=== PATIENT | male | born 1970 | race Caucasian/White ===

== ENCOUNTER 2018-04-02 10:56 | Outpatient (CLI) | payer SELFPAY ==
--- NOTE | 2018-04-02 11:06 | DI.RAD_ITS ---
SYMPTOMS/DIAGNOSIS: BACK PAIN WITH RADICULOPATHY, M54.16 LUMBAR SPINE: AP, lateral and bilateral oblique views. Comparison is 01/10/17. There are five lumbar-type vertebral bodies. No spondylolysis or spondylolisthesis is identified. There is disc space narrowing at L5-S1 and a vacuum disc. This is stable. Endplate osteophytes are seen throughout the lumbar spine and appear stable. Degenerative changes of the facets are seen at L4-5 and L5-S1, which appear stable. No acute fractures or subluxations are seen. IMPRESSION: Stable degenerative changes in the lumbar spine.
== END 2018-04-02 11:16 ==
PROVIDERS: PCP Family Medicine; Visit Provider Family Medicine
DX: M25.78 Osteophyte, vertebrae (principal); M51.17 Intervertebral disc disorders with radiculopathy, lumbosacral region; M47.26 Other spondylosis with radiculopathy, lumbar region; M47.27 Other spondylosis with radiculopathy, lumbosacral region
CPT/HCPCS: 72110

== ENCOUNTER 2020-01-23 15:23 | Outpatient (REF) | payer SELFPAY ==
[2020-01-23 20:00] LABS: Calculated LDL 130 mg/dL (<100); Cholesterol 200 mg/dL (<200); HDL Cholesterol 55 mg/dL (40-60); Triglyceride 76 mg/dL (<150)
[2020-01-23 20:06] LABS: Hemoglobin A1C 5.5 % (<5.7)
== END 2020-01-23 15:43 ==
LOC: NCHCN 15:23
PROVIDERS: PCP Family Medicine; Visit Provider Family Medicine
DX: Z13.220 Encounter for screening for lipoid disorders (principal); Z13.1 Encounter for screening for diabetes mellitus; Z00.00 Encounter for general adult medical examination without abnormal findings
CPT/HCPCS: 80061; 83036

== ENCOUNTER 2020-01-27 14:07 | Outpatient (REF) | payer SELFPAY ==
[2020-01-27 19:25] LABS: HCT 46.3 % (40.0-50.0); HGB 15.8 g/dL (13.5-17.5); MCH 28.9 pg (27.0-33.0); MCHC 34.1 % (32.0-36.0); MCV 84.6 fL (80-95); MPV 10.4 fL (8.0-11.0); Platelet Count 322 10^3/uL (130-400); RBC 5.47 10^6/uL (4.36-5.78); RDW 13.2 % (11.8-14.1); RDW-SD 41.4 fL; WBC 8.35 10^3/uL (4.4-10.8)
[2020-01-27 19:44] LABS: ALT 61 U/L (16-63); AST 27 U/L (15-37); Albumin 4.1 g/dL (3.4-5.0); Alkaline Phosphatase 80 U/L (46-116); Anion Gap 8.9 mmol/L (3-11); BUN 21 mg/dL (7-18); CO2 27.1 mmol/L (21.0-32.0); CREATININE 0.96 mg/dL (0.70-1.30); Calcium 9.5 mg/dL (8.5-10.1); Chloride 102 mmol/L (98-107); Glucose 90 mg/dL (74-106); Potassium 4.4 mmol/L (3.5-5.1); Sodium 138 mmol/L (136-145); TSH (W/Ref FT4) 1.59 uIU/mL (0.36-3.74); Total Protein 7.3 g/dL (6.4-8.2)
== END 2020-01-27 14:27 ==
LOC: NCHCN 14:07
PROVIDERS: PCP Family Medicine; Visit Provider Family Medicine
DX: R53.83 Other fatigue (principal); B35.1 Tinea unguium; Z00.00 Encounter for general adult medical examination without abnormal findings
CPT/HCPCS: 80053; 85027; 84443

== ENCOUNTER 2020-03-22 17:17 | Outpatient (REF) | payer BC, SELFPAY ==
[2020-03-22 20:20] LABS: ALT 50 U/L (16-63); AST 28 U/L (15-37)
== END 2020-03-22 17:37 ==
LOC: NCHCN 17:17
PROVIDERS: PCP Family Medicine; Visit Provider Family Medicine
DX: R53.83 Other fatigue (principal)
CPT/HCPCS: 84450; 84460

== ENCOUNTER 2021-10-21 16:41 | Outpatient (REF) | payer BC, SELFPAY ==
[2021-10-21 15:33] LABS: Calculated LDL 122 mg/dL (<100); Cholesterol 203 mg/dL (<200); Glucose 80 mg/dL (74-106); HDL Cholesterol 74 mg/dL (40-60); Triglyceride 39 mg/dL (<150)
[2021-10-21 22:50] LABS: PSA, Screening 0.2 ng/mL (<=3.5)
[2021-10-27 16:30] LABS: Testosterone, Free 12.5 ng/dL (4.06-15.6); Testosterone, Total 481 ng/dL (240-950)
== END 2021-10-21 16:42 | disposition home or self-care (01) ==
LOC: NCHCN 16:41
PROVIDERS: PCP Family Medicine; Visit Provider Family Medicine
DX: Z00.00 Encounter for general adult medical examination without abnormal findings (principal); Z13.1 Encounter for screening for diabetes mellitus; Z12.5 Encounter for screening for malignant neoplasm of prostate; Z13.220 Encounter for screening for lipoid disorders
CPT/HCPCS: 80061; 82947; 84153; 84402; 84403

== ENCOUNTER 2023-05-11 06:17 | Day surgery (SDC) | payer BC, SELFPAY ==
--- NOTE | 2023-05-10 19:50 | W.PM.DSUDISC ---
Date of service: 05/11/23 Time of Service: 09:13 Discharge Plan Disposition Patient Disposition: Home Condition: Good Discharge Details Reason For Visit: Inguinal hernia repair Attending Provider: Rohan Porter Primary Care Provider: Andree Espinosa V Home Meds and New Rx's Prescriptions: Continued tramadol 100 mg tablet 100 mg PO TID PRN (Reason: pain) Qty: 12 0RF Rx Instructions: Take 1 tablet by mouth up to every 8 hours if needed for severe pain. These tablets can be broken in half. Do not drive while using this medication. Discharge Instructions Instructions: Inguinal Hernia Repair (GEN) Additional Instructions: Body, you did great today. The hernia repair went very smoothly. I think you made a smart decision by having surgery. I suspect that this would have increased in size in the years to come. The mesh is well-seated, and hopefully will provide a durable repair over the course your life. Like we talked about before, expect to have a little more pain in the days to come. You should be up and moving around, but taking some care to avoid really strenuous activities, lifting, or vigorous twisting across your lower abdomen and waist. Please leave the bandage on until tomorrow. At that point, you can remove it in the shower, and wash everything with warm soapy water. You are welcome to put Band-Aids on it over the next few days, but assuming it is dry and feels okay, you do not need to do that in particular. I would also expect to see some bruising in the area, that may extend down into your scrotum. Do not be alarmed if that happens it is quite common. Please do let me know if there are any changes in the skin that look like infection. This would include things like the skin turning bright red, or draining thick fluid from the incision. Please do not be afraid to let me know if you have any issues at all. Assuming things go smoothly, I will plan to see you in the office in June 06. Hopefully you guys can have a great [place], and take it easy as this heals. 1. Resume all of your medications. 2. Use heating pads and ice packs as needed for pain. 3. Okay to use tylenol and ibuprofen over the counter as needed. Use tramadol if needed for more severe pain. 4. Leave bandage in place for 24 hours, then remove. 5. Shower with warm soapy water. Pat dry. Use a bandaid if needed to protect your clothing. 6. No soaking or tub baths until I see you in the office. 7. No heavy lifting until I see you in the office. 8. Call the office (or go directly to the emergency room after hours) if you notice any of the following: Develop chills (warm to touch), or if you have a thermometer and your temperature is above 101 Difficulty breathing or difficultly swallowing Persistent vomiting Any bleeding ? exceeding one tablespoon 9. Call your physician if the site where your intravenous was started becomes red, swollen, painful, and warm to touch. Activity:: Activity as Tolerated Diet:: As Tolerated Discharge Orders Discharge Orders: Discharge Order (Routine); Ordered 05/10/23 Ordered By: Rohan Porter DS: Diagnosis Discharge Diagnosis (1) Inguinal hernia: Status: Acute Asessment and Plan: Outpatient follow-up on June 06
--- NOTE | 2023-05-10 19:55 | W.PM.OP ---
Date of service: 05/11/23 Time of Service: 09:17 Operative Note Operative Note DATE OF PROCEDURE: 05/11/23 PRE-OP DIAGNOSIS: Right inguinal hernia PROCEDURE: Open right inguinal hernia repair with mesh SURGEON: Rohan Porter [employer] PRODUCER: Jeannie Lechuga ANESTHESIA TYPE: Local By Surgeon and General LMA/ETT Refer to Anesthesia Record ESTIMATED BLOOD LOSS: 10 PATHOLOGY: none sent COMPLICATIONS: None Patient was transported to: PACU Patient's condition: stable Implants: Large Bard PerFix light plug and patch Indications: But is a 53-year-old male with a painful right-sided inguinal hernia. Findings: Indirect right inguinal hernia Procedure Description: I began by confirming the correct site with the patient. Next, after induction of general anesthesia the patient underwent ultrasound-guided tap block by the anesthesia team. The surgical site was then prepped and draped in the usual fashion. I began by making an oblique incision over the right inguinal region. I dissected down through the skin to the deep fascia. Next, I incised the fascia along the length of the inguinal canal to the external ring. I then carefully identified the ilioinguinal nerve and sharply divided. Once this was complete, I bluntly dissected the shelving edge of the inguinal ligament down towards the pubic tubercle. Here, I encircled all cord structures with a Lily drain. Next, I began dissecting the specific cord structures. Great care was taken to spare the vas deferens and the blood supply to the testicle. Next, I isolated the hernia sac from the other inguinal structures. I reduced it back to its normal anatomic position. I then used a large mesh plug to obliterate the defect at the internal ring. I fixed in place with interrupted Prolene stitches. Next, I buttressed the posterior floor of the inguinal canal with a large mesh patch. I started by fixing it to the pubic tubercle. Next, I used Prolene sutures to affix it to the shelving edge of the inguinal ligament and the conjoined tendon. Laterally I tacked it to the external oblique fascia and reconstructed an internal ring without any strain on the cord structures. Once this was complete, I irrigated the surgical field. It appeared hemostatic. I then closed the anterior portion of the fascia to reconstruct the front wall of the inguinal canal. I did this with running Vicryl stitches. Once again, I irrigated the surgical field and inspected for hemostasis. Finally, I approximated the superficial fascia and the deep layers of the skin with absorbable suture. Skin was closed with running subcuticular stitches. Bandages were applied, the patient was awakened and transferred to the recovery unit.
[2023-05-11] VITALS (10 sets, daily range): BP systolic 99–128; BP diastolic 55–81; PULSE 49–69; RESP 11–19; TEMP 36.5–36.6; O2SAT 96–100; BMI 27.6
[2023-05-11] MEDS: Acetaminophen 500 MG TAB 1000 MG PO (06:43)
[2023-05-11] MEDS: Gabapentin 300 MG CAP 600 MG PO (06:43)
[2023-05-11] MEDS: Celecoxib 200 MG CAP PO (06:43)
[2023-05-11] MEDS: Lactated Ringers 1,000 ML 80 ML IV (06:44)
--- NOTE | 2023-05-11 07:00 | W.ANESPRE ---
General Info Date of Service Date Performed: 05/11/23 Height: 5 ft 7 in Weight: 79.9 kg Body Mass Index (BMI): 27.6 Surgical Procedure: Operation Date: 05/11/23 07:40 Proposed Procedure Side Surgeon p Herniorrhaphy Inguinal Right Rohan Porter MD Meds Allergies and Home Medications Allergies Allergy/AdvReac Type Severity Reaction Status Date / Time No Known Allergies Allergy Unverified 05/11/23 06:20 Home Medication Medication Instructions Recorded tramadol 100 mg tablet 100 mg PO TID PRN pain #12 tabs 05/10/23 Current Visit Medications: Current Medications Generic Name Dose Route Start Last Admin Trade Name Freq PRN Reason Stop Dose Admin Acetaminophen 1,000 mg 05/11/23 06:00 05/11/23 06:43 Acetaminophen 500 Mg Tab PO 05/11/23 23:59 1,000 mg PREOP BERT Administration Celecoxib 200 mg 05/11/23 06:00 05/11/23 06:43 Celecoxib 200 Mg Cap PO 05/11/23 23:59 200 mg PREOP BERT Administration Gabapentin 600 mg 05/11/23 06:00 05/11/23 06:43 Gabapentin 300 Mg Cap PO 05/11/23 23:59 600 mg PREOP BERT Administration Ringer's Solution 1,000 mls @ 80 mls/hr 05/11/23 06:00 05/11/23 06:44 IV 05/11/23 23:59 80 mls/hr INFUSION BERT Administration Cefazolin Sodium 3,000 mg/ 100 mls @ 200 mls/hr 05/11/23 06:00 Sodium Chloride IVPB 05/11/23 23:59 NOW BERT IV Miscellaneous Supplies 1 each 05/11/23 06:00 Iv Access IV 05/11/23 23:59 DIRECTED BERT Morphine Sulfate 4 mg 05/10/23 20:00 Morphine 4 Mg/Ml Syr IVP 06/09/23 19:59 Q1H PRN PRN Sodium Chloride 0 ml 05/11/23 06:00 Normal Saline Flush 10 Ml Syr IV 05/11/23 23:59 PRN PRN Sodium Chloride 0 ml 05/11/23 06:00 Normal Saline 10 Ml Vial IJ 05/11/23 23:59 DIRECTED PRN Sterile Water 0 ml 05/11/23 06:00 Water,Injection,Sterile 10 Ml Vial IJ 05/11/23 23:59 DIRECTED PRN Tramadol HCl 100 mg 05/10/23 20:00 Tramadol 50 Mg Tab PO 06/09/23 19:59 Q6H PRN PRN Pain PFSH Active Problems Active Problems: Problem Status Onset Code Inguinal hernia K40.90 Abdominal or pelvic swelling, mass, or lump, right lower quadrant R19.03 Abdominal bloating R14.0 Medial epicondylitis M77.00 Pes anserinus bursitis of right knee M70.51 Medical History Medical History Foreign body under eyelid Acute low back pain Back pain with radiculopathy Trochanteric bursitis, right hip Old disruption of medial collateral ligament Xeroderma Shingles Onychomycosis Fatigue Knee pain Tobacco Smoking/Tobacco Use Status: Never Alcohol Alcohol Intake: current Alcohol intake frequency: a few times a month Substance Use Substance use: Never Substance use type: does not use Vital Signs and Lab Results Vital Signs Most Recent Vital Signs in EMR: Most Recent Vital Signs Temp Pulse Resp BP Pulse Ox 36.6 C 69 16 110/69 96 05/11/23 06:52 05/11/23 06:52 05/11/23 06:52 05/11/23 06:52 05/11/23 06:52 Lab Results Blood Type / Crossmatch: No Data to Display Complete Blood Count: No Data to Display Complete Metabolic Panel: No Data to Display Liver Function Panel: No Data to Display Coagulation Panel: No Data to Display Cardiac Panel: No Data to Display Arterial Blood Gas: No Data to Display Venous Blood Gas: No Data to Display Pancreas Panel: No Data to Display Thyroid Panel: No Data to Display Infectious Disease: No Data to Display Blood Cultures: No Data to Display Toxicology Panel: No Data to Display Anesthesia Assessment and Plan Anesthesia History Personal History: No History of Anesthesia Complications Family History: No Family History of Anesthesia Complications Exercise Tolerance Exercise Tolerance: Metabolic Equivalents>4 Pertinent Negatives Pertinent Negatives: No Symptoms of GERD, No Major Cardiovascular Symptoms or Complaints and No Major Pulmonary Symptoms or Complaints Cardiac & Pulmonary Exam Cardiac Exam: Normal S1/S2 Heart Sounds Pulmonary Exam: Clear Bilateral Breath Sounds Implantable Cardiac Device Does patient have a Pacemaker or an ICD?: No Airway Exam Known Difficult Airway: No Mallampati Class: 1 Mouth Opening: Normal (> 3cm) Thyromental Distance: Greater than 3 cm Neck Range of Motion: Full ROM Neck Circumference: Normal Teeth Condition: Normal Dentition ASA Classification ASA Score: ASA 2 Emergency Case?: No NPO Status NPO Status: NPO Clears >2 hours, Solids >8 hours Anesthesia Plan Resuscitation Status: Full Code Anesthesia Technique: General Anesthesia Airway Planned: LMA Pain Management: Surgeon and patient request nerve block Monitors Used: Standard Monitors
[2023-05-11] MEDS: ceFAZolin 3,000 MG in Normal Saline 100 ML 200 MG IVPB (07:57)
--- NOTE | 2023-05-11 08:14 | ANES.NERVE_ITS ---
Nerve Block Single Injection Procedure Date and Time Date Performed: 05/11/23 Procedure Start: 07:50 Location Where Procedure Performed Procedure Location: Operating Room Procedure Stop: 07:56 Reason Performed: Postoperative Analgesia Requesting Provider: Rohan Porter Timeout Performed Timeout Performed: Yes Monitoring Used ECG, Blood Pressure, SpO2 and See EMR for corresponding vital signs Sterility Sterility: Hand Hygiene, Surgical Cap, Surgical Mask, Sterile Gloves and Chlorh exidine Sedation Given During Procedure Sedation Given (Indicate Dose Given): No Sedation given Patient Mental Status Patient Mental Status: Performed under general anesthesia Nerve Block 1st Nerve Block: Laterality: Right Block Type: TAP Unilateral Ultrasound Image Saved?: Yes Needle / Catheter Used: 100mm SonoPlex II Local Anesthetic Bolus (Indicate Dose Given): None, Injected in 3-5ml increments after negative blood aspiration, Bupivacaine 0.25% Dose:: 20mL and Exparel Dose:: 10mL Additives (Indicate Dose Given): None Ultrasound: Sterile probe cover and gel used Nerve Stimulator: Not Used Paresthesia: None Procedure Tolerated: No Complications Procedure Outcome: Successful Performed By: Sheir Love
[2023-05-11] MEDS: fentaNYL 100 MCG/2 ML VIAL IVP ×2 (09:28→09:37)
[2023-05-11] MEDS: Normal Saline 10 ML VIAL IJ (10:06)
[2023-05-11] MEDS: HYDROmorphone 2 MG/ML SYR IVP (10:07)
[2023-05-11] MEDS: traMADol 50 MG TAB 100 MG PO (10:44)
--- NOTE | 2023-05-11 10:54 | W.ANESPOSTOP ---
Postoperative Evaluation Date, Time and Location Date Performed: 05/11/23 Time Performed: 10:53 Patient Location: Day Surgery Unit Vital Signs Most Recent Imported Vital Signs: Most Recent Vital Signs Temp Pulse Resp BP Pulse Ox 36.6 C 58 L 16 121/81 99 05/11/23 10:32 05/11/23 10:32 05/11/23 10:32 05/11/23 10:32 05/11/23 10:32 Pain Score Most Recent Pain Score: Most Recent Pain Score Pain Level 4 05/11/23 10:32 Assessment Mental Status: Awake (Alert & Oriented to Patient Baseline) Airway and Respiratory Function: Patent airway with normal (patient baseline) respiratory exam Cardiovascular Function: Hemodynamically Stable Hydration Status: Adequately Hydrated Nausea & Vomiting: No Nausea or Vomiting Pain: Pain is tolerable per patient Peripheral Nerve Block: Regional nerve block not resolved at time of post operative discharge
== END 2023-05-11 17:34 | disposition home or self-care (01) ==
LOC: SUR 06:18
PROVIDERS: PCP Family Medicine; Visit Provider Surgery
PROC: (CPT 49505; principal; 2023-05-11 07:30)
DX: K40.90 Unilateral inguinal hernia, without obstruction or gangrene, not specified as recurrent (principal); R14.0 Abdominal distension (gaseous)
CPT/HCPCS: 49505; 76942; C1781; J0690; J1100; J1170; J2001; J2250; J2405; J2704; J3010

== ENCOUNTER 2023-06-06 10:44 | Day surgery (SDC) | payer BC, SELFPAY ==
[2023-06-06 10:55] VITALS: BP 115/87; PULSE 72; RESP 16; TEMP 36.4; O2SAT 98
[2023-06-06] MEDS: Lactated Ringers 1,000 ML 80 ML IV (11:11)
--- NOTE | 2023-06-06 11:23 | W.ANESPRE ---
General Info Date of Service Date Performed: 06/06/23 Height: 5 ft 7 in Weight: 81 kg Body Mass Index (BMI): 27.9 Surgical Procedure: Operation Date: 06/06/23 13:05 Proposed Procedure Side Surgeon p Colonoscopy Guillermo Pierre MD Meds Allergies and Home Medications Allergies Allergy/AdvReac Type Severity Reaction Status Date / Time No Known Allergies Allergy Verified 06/06/23 10:51 Home Medication Medication Instructions Recorded bisacodyl 5 mg tablet,delayed 5 mg PO ONCE colonscopy bowel prep 05/23/23 release (Dulcolax (bisacodyl)) #4 tabs polyethylene glycol 3350 17 238 g PO ONCE colonoscopy prep 05/23/23 gram/dose oral powder #238 grams Current Visit Medications: Current Medications Generic Name Dose Route Start Last Admin Trade Name Freq PRN Reason Stop Dose Admin Ringer's Solution 1,000 mls @ 80 mls/hr 06/06/23 06:00 06/06/23 11:11 IV 07/05/23 23:59 80 mls/hr INFUSION BERT Administration IV Miscellaneous Supplies 1 each 06/06/23 06:00 Iv Access IV 07/05/23 23:59 DIRECTED BERT Sodium Chloride 0 ml 06/06/23 06:00 Normal Saline Flush 10 Ml Syr IV 07/05/23 23:59 PRN PRN Sodium Chloride 0 ml 06/06/23 06:00 Normal Saline 10 Ml Vial IJ 07/05/23 23:59 DIRECTED PRN Sterile Water 0 ml 06/06/23 06:00 Water,Injection,Sterile 10 Ml Vial IJ 07/05/23 23:59 DIRECTED PRN PFSH Active Problems Active Problems: Problem Status Onset Code Inguinal hernia K40.90 Abdominal or pelvic swelling, mass, or lump, right lower quadrant R19.03 Abdominal bloating R14.0 Medial epicondylitis M77.00 Pes anserinus bursitis of right knee M70.51 Medical History Medical History (Updated 06/05/23 @ 12:16 by Syed Rodriguez) Foreign body under eyelid Acute low back pain Back pain with radiculopathy Trochanteric bursitis, right hip Old disruption of medial collateral ligament Xeroderma Shingles 2014 Onychomycosis Fatigue Knee pain Surgical History Surgical History Inguinal hernia of right side without obstruction or gangrene (~04/2023) Tobacco Smoking/Tobacco Use Status: Never Alcohol Alcohol Intake: current Alcohol intake frequency: a few times a month Substance Use Substance use: Never Substance use type: does not use Vital Signs and Lab Results Vital Signs Most Recent Vital Signs in EMR: Most Recent Vital Signs Temp Pulse Resp BP Pulse Ox 36.4 C L 72 16 115/87 98 06/06/23 10:55 06/06/23 10:55 06/06/23 10:55 06/06/23 10:55 06/06/23 10:55 Lab Results Blood Type / Crossmatch: No Data to Display Complete Blood Count: No Data to Display Complete Metabolic Panel: No Data to Display Liver Function Panel: No Data to Display Coagulation Panel: No Data to Display Cardiac Panel: No Data to Display Arterial Blood Gas: No Data to Display Venous Blood Gas: No Data to Display Pancreas Panel: No Data to Display Thyroid Panel: No Data to Display Infectious Disease: No Data to Display Blood Cultures: No Data to Display Toxicology Panel: No Data to Display Anesthesia Assessment and Plan Anesthesia History Personal History: No History of Anesthesia Complications Family History: No Family History of Anesthesia Complications Exercise Tolerance Exercise Tolerance: Metabolic Equivalents>4 Pertinent Negatives Pertinent Negatives: No Symptoms of GERD, No Major Cardiovascular Symptoms or Complaints and No Major Pulmonary Symptoms or Complaints Cardiac & Pulmonary Exam Cardiac Exam: Normal S1/S2 Heart Sounds Pulmonary Exam: Clear Bilateral Breath Sounds Implantable Cardiac Device Does patient have a Pacemaker or an ICD?: No Airway Exam Known Difficult Airway: No Mallampati Class: 1 Mouth Opening: Normal (> 3cm) Thyromental Distance: Greater than 3 cm Neck Range of Motion: Full ROM Neck Circumference: Normal Teeth Condition: Normal Dentition ASA Classification ASA Score: ASA 2 Emergency Case?: No NPO Status NPO Status: NPO Clears >2 hours, Solids >8 hours Anesthesia Plan Resuscitation Status: Full Code Anesthesia Technique: General Anesthesia Airway Planned: Natural Airway Monitors Used: Standard Monitors
[2023-06-06 11:32] VITALS: BMI 27.9
[2023-06-06 12:33] VITALS: BP 107/69; PULSE 80; RESP 16; TEMP 36.3; O2SAT 98
--- NOTE | 2023-06-06 12:46 | W.COLOREPORT ---
Date of service: 06/06/23 Time of Service: 12:46 Colonoscopy Report Procedure Description: PROCEDURES PERFORMED: 1. Colonoscopy PREOPERATIVE DIAGNOSIS: Screening colonoscopy POSTOPERATIVE DIAGNOSIS: Normal SURGEON: Scotty Pierre MD INDICATION FOR PROCEDURE: The patient is a 53-year-old healthy man with no prior colonoscopy. No symptoms. No family history of colon cancer. FINDINGS: No polyps. No diverticular disease. No hemorrhoidal disease. SURVEILLANCE interval/FOLLOW-UP: 10 years SPECIMENS: None EBL: Minimal COMPLICATIONS: None QUALITY of prep: Excellent Procedure in detail: The patient gave written consent and was in agreement with the indications, the potential risks as well as the benefits of the procedure. They were taken to the endoscopy suite and laid in the left lateral decubitus position. A timeout was performed and anesthesia was administered which was tolerated well. I started the procedure. Digital rectal and visual examination was performed and grossly within normal limits. A well-lubricated flexible colonoscope was then introduced and passed without any notable difficulty all the way to the cecum identified by the ileocecal valve and the appendiceal orifice. The scope was then slowly withdrawn with the above-noted findings. The patient tolerated the procedure well and was taken to the PACU in hemodynamically stable condition.
--- NOTE | 2023-06-06 12:47 | W.PM.DSUDISC ---
Date of service: 06/06/23 Time of Service: 12:47 Discharge Plan Disposition Patient Disposition: Home Condition: Good Discharge Details Attending Provider: Guillermo Pierre Primary Care Provider: Andree Espinosa V Home Meds and New Rx's Prescriptions: No Action polyethylene glycol 3350 17 gram/dose powder 238 g PO ONCE Qty: 238 0RF Rx Instructions: take per colonoscopy instructions bisacodyl [Dulcolax (bisacodyl)] 5 mg tablet,delayed release (DR/EC) 5 mg PO ONCE Qty: 4 0RF Rx Instructions: take per colonoscopy instructions Discharge Instructions Additional Instructions: FINDINGS: Everything looked normal. No inflammation. No polyps. No tumors. Repeat another colonoscopy in 10 years. Activity:: Activity as Tolerated Diet:: As Tolerated
[2023-06-06 13:08] VITALS: BP 113/75; PULSE 63; RESP 18; TEMP 36; O2SAT 98
--- NOTE | 2023-06-06 14:57 | W.ANESPOSTOP ---
Postoperative Evaluation Date, Time and Location Date Performed: 06/06/23 Time Performed: 13:18 Patient Location: Day Surgery Unit Vital Signs Most Recent Imported Vital Signs: Most Recent Vital Signs Temp Pulse Resp BP Pulse Ox 36 C L 63 18 113/75 98 06/06/23 13:08 06/06/23 13:08 06/06/23 13:08 06/06/23 13:08 06/06/23 13:08 Pain Score Most Recent Pain Score: Most Recent Pain Score Pain Level 0 06/06/23 13:08 Assessment Mental Status: Awake (Alert & Oriented to Patient Baseline) Airway and Respiratory Function: Patent airway with normal (patient baseline) respiratory exam Cardiovascular Function: Hemodynamically Stable Hydration Status: Adequately Hydrated Nausea & Vomiting: No Nausea or Vomiting Pain: Pt. Denies Any Pain Peripheral Nerve Block: Patient did not receive a nerve block
== END 2023-06-06 13:15 | disposition home or self-care (01) ==
PROVIDERS: PCP Family Medicine; Visit Provider Student in an Organized Health Care Education/Training Program
PROC: 0DJD8ZZ Inspection of Lower Intestinal Tract, Via Natural or Artificial Opening Endoscopic (ICD-10-PCS; CPT 45378; principal; 2023-06-06 13:00)
DX: Z12.11 Encounter for screening for malignant neoplasm of colon (principal)
CPT/HCPCS: 45378; 00123; J2704

== ENCOUNTER 2024-11-14 23:13 | Outpatient (REF) | payer BC, SELFPAY ==
[2024-11-14 15:20] LABS: HCT 46.5 % (40.0-50.0); HGB 15.9 g/dL (13.5-17.5); MCH 29.2 pg (27.0-33.0); MCHC 34.2 % (32.0-36.0); MCV 85 fL (80-95); MPV 10.1 fL (8.0-11.0); Platelet Count 294 10^3/uL (130-400); RBC 5.45 10^6/uL (4.36-5.78); RDW 13.7 % (11.8-14.1); RDW-SD 42.4 fL; WBC 4.96 10^3/uL (4.4-10.8)
[2024-11-14 15:48] LABS: ALT 57 U/L (16-63); AST 26 U/L (15-37); Albumin 3.8 g/dL (3.4-5.0); Alkaline Phosphatase 84 U/L (46-116); Anion Gap 7.7 mmol/L (3-11); BUN 20 mg/dL (7-18); Bilirubin, Total 1.2 mg/dL (0.2-1.0); CO2 28.3 mmol/L (21.0-32.0); CREATININE 0.8 mg/dL (0.70-1.30); Calcium 9.1 mg/dL (8.5-10.1); Chloride 106 mmol/L (98-107); Estimated GFR 105.82 (mL/min/1.73m2); Glucose 95 mg/dL (74-106); Potassium 4.4 mmol/L (3.5-5.1); Sodium 142 mmol/L (136-145); TSH (W/Ref FT4) 1.44 uIU/mL (0.36-3.74); Total Protein 6.9 g/dL (6.4-8.2)
[2024-11-14 15:55] LABS: Hemoglobin A1C 5.5 % (<5.7)
[2024-11-14 16:01] LABS: C-Reactive Protein < 0.50 mg/dL (<or=0.5)
[2024-11-14 22:15] LABS: PSA, Screening 0.2 ng/mL (<=3.5)
[2024-11-27 16:05] LABS: Testosterone, Free 11.7 ng/dL (4.06-15.6); Testosterone, Total 545 ng/dL (240-950)
== END 2024-11-14 23:14 | disposition home or self-care (01) ==
LOC: NCHCN 23:13
PROVIDERS: PCP Family Medicine; Visit Provider Family Medicine
DX: R53.81 Other malaise (principal); Z13.1 Encounter for screening for diabetes mellitus; Z12.5 Encounter for screening for malignant neoplasm of prostate
CPT/HCPCS: 80053; 84153; 84402; 84403; 85027; 83036; 84443; 86140